=== PATIENT | female | born 1955 | race Caucasian/White ===

== ENCOUNTER 2019-01-04 11:41 | Inpatient (IN) | payer OTHER ==
[~2019-01-04] VITALS: Ht 149.9 cm; Wt 40.8 kg
[2019-01-04 11:47] VITALS: Ht 149.9 cm; Wt 40.8 kg
[2019-01-04 12:32] LABS: BASOPHIL % 3.3 % (0-2); PLATELET COUNT 84 x10^3mcL (130-400); RED CELL DISTRIBUTION WIDTH 14.4 % (11.5-14.5)
[2019-01-04 12:45] LABS: CARBON DIOXIDE 18.4 mmol/L (21-32); CHLORIDE SERUM 113 mmol/L (98-107); CREATININE SERUM 0.6 mg/dL (0.6-1.0); GFR1 > 60 mL/min; GLUCOSE SERUM 170 mg/dL (74-106); POTASSIUM SERUM 3.6 mmol/L (3.5-5.1); SODIUM SERUM 144 mmol/L (136-145)
[2019-01-04 12:48] LABS: ALKALINE PHOSPHATASE 139 U/L (46-116); ALT/SGPT 45 U/L (14-59); AST/SGOT 64 U/L (15-37); BILIRUBIN TOTAL 5.7 mg/dL (0.20-1.00)
[2019-01-04 12:49] LABS: ALBUMIN 2.8 g/dL (3.4-5.0)
[2019-01-04 15:05] LABS: T3 TOTAL 1.1 ng/mL
[2019-01-04 15:06] LABS: FREE T4 1.48 ng/dL (0.76-1.46); FREE THYROXINE INDEX 3.4 ug/dL (1.4-4.5); T4(THYROXINE) 8.8 ug/dL (4.7-13.3)
[2019-01-04 16:44] VITALS: BP 149/67
[2019-01-04 17:22] LABS: CHOLESTEROL/HDL RATIO 2.5
[2019-01-04 20:01] VITALS: BP 139/69
[2019-01-05 05:39] VITALS: BP 135/59
[2019-01-05 06:29] LABS: CALCIUM 8.1 mg/dL (8.5-10.1); CARBON DIOXIDE 20.2 mmol/L (21-32); CHLORIDE SERUM 114 mmol/L (98-107); CREATININE SERUM 0.5 mg/dL (0.6-1.0); GFR1 > 60 mL/min; GLUCOSE SERUM 121 mg/dL (74-106); MAGNESIUM 1.7 mg/dL (1.8-2.4); PHOSPHOROUS 4.7 mg/dL (2.5-4.9); POTASSIUM SERUM 3.7 mmol/L (3.5-5.1); SODIUM SERUM 146 mmol/L (136-145)
[2019-01-05 07:46] LABS: microscopic required? YES; urine erythrocyte 1+ (NEGATIVE)
[2019-01-05 08:28] LABS: BASOPHIL % 0.3 % (0-2); RED CELL DISTRIBUTION WIDTH 14.5 % (11.5-14.5)
[2019-01-05 08:30] LABS: PLATELET COUNT 88 x10^3mcL (130-400)
[2019-01-05 08:35] LABS: AMPHETAMINE QUAL UR NONE DETECTED (See below)
[2019-01-05 08:47] VITALS: BP 135/63
[2019-01-05] MEDS ORDERED: ZESTRIL20 MG PO (10:12)
[2019-01-05] MEDS ORDERED: FERROUS SULFAT325 M2 PO (10:13)
[2019-01-05] MEDS ORDERED: SEROQUEL XR50 MG PO (10:14)
[2019-01-05] MEDS ORDERED: AFRNS NS (10:19)
[2019-01-05] MEDS ORDERED: ALLERGY10 M2 PO (10:21)
[2019-01-05] MEDS ORDERED: EPZICOM1 TAB (10:21)
[2019-01-05 11:02] LABS: IRON 141 ug/dL (50-170)
[2019-01-05 11:50] LABS: RED BLOOD CELLS 3.21 M/mm3 (4.10-5.10)
[2019-01-05 12:30] VITALS: BP 133/63
[2019-01-05 13:35] LABS: TOTAL IRON BINDING CAPACITY 153 ug/dL (250-450)
[2019-01-05 17:11] VITALS: BP 132/60
[2019-01-05 21:17] VITALS: BP 146/62
[2019-01-06 06:09] VITALS: BP 130/60
[2019-01-06 06:15] LABS: BASOPHIL % 0.4 % (0-2)
[2019-01-06 06:34] LABS: CALCIUM 7.8 mg/dL (8.5-10.1); CARBON DIOXIDE 22.3 mmol/L (21-32); CHLORIDE SERUM 106 mmol/L (98-107); CREATININE SERUM 0.3 mg/dL (0.6-1.0); GFR1 > 60 mL/min; GLUCOSE SERUM 134 mg/dL (74-106); POTASSIUM SERUM 3.6 mmol/L (3.5-5.1); SODIUM SERUM 141 mmol/L (136-145)
[2019-01-06 06:59] LABS: PLATELET COUNT 101 x10^3mcL (130-400)
[2019-01-06 09:21] VITALS: BP 128/61
[2019-01-06 10:50] LABS: ALBUMIN 2.9 g/dL (3.4-5.0); BILIRUBIN DIRECT 1.13 mg/dL (0.0-0.2); BILIRUBIN TOTAL 6.6 mg/dL (0.20-1.00)
[2019-01-06 12:52] VITALS: BP 133/63
[2019-01-06 17:18] VITALS: BP 144/67
[2019-01-06 21:16] VITALS: BP 149/64
[2019-01-07 05:43] VITALS: BP 160/64
[2019-01-07 06:48] LABS: BASOPHIL % 0.4 % (0-2); RED CELL DISTRIBUTION WIDTH 13.8 % (11.5-14.5)
[2019-01-07 06:49] LABS: PLATELET COUNT 96 x10^3mcL (130-400)
[2019-01-07 07:06] LABS: CALCIUM 8.3 mg/dL (8.5-10.1); CARBON DIOXIDE 21.9 mmol/L (21-32); CHLORIDE SERUM 110 mmol/L (98-107); CREATININE SERUM 0.5 mg/dL (0.6-1.0); GFR1 > 60 mL/min; GLUCOSE SERUM 121 mg/dL (74-106); POTASSIUM SERUM 4.2 mmol/L (3.5-5.1); SODIUM SERUM 141 mmol/L (136-145)
[2019-01-07 09:33] VITALS: BP 145/66
[2019-01-07 12:37] VITALS: BP 145/62
[2019-01-07 13:29] VITALS: BP 145/62
[2019-01-07 18:00] VITALS: BP 130/63
[2019-01-07 20:27] VITALS: BP 141/68
[2019-01-08 04:59] VITALS: BP 138/61
[2019-01-08 06:32] LABS: CALCIUM 8.2 mg/dL (8.5-10.1); CARBON DIOXIDE 22.5 mmol/L (21-32); CHLORIDE SERUM 108 mmol/L (98-107); CREATININE SERUM 0.5 mg/dL (0.6-1.0); GFR1 > 60 mL/min; GLUCOSE SERUM 117 mg/dL (74-106); POTASSIUM SERUM 4.3 mmol/L (3.5-5.1); SODIUM SERUM 140 mmol/L (136-145)
[2019-01-08 06:44] LABS: RED CELL DISTRIBUTION WIDTH 13.9 % (11.5-14.5)
[2019-01-08 07:01] LABS: BASOPHIL % 0 % (0-2); PLATELET COUNT 111 x10^3mcL (130-400)
[2019-01-08 10:08] VITALS: BP 142/55
[2019-01-08 13:12] VITALS: BP 159/67
[2019-01-08 17:03] VITALS: BP 135/64
[2019-01-08 20:10] VITALS: BP 131/54
[2019-01-09 05:37] VITALS: BP 144/60
[2019-01-09 06:46] LABS: CALCIUM 8.7 mg/dL (8.5-10.1); CARBON DIOXIDE 21.4 mmol/L (21-32); CHLORIDE SERUM 105 mmol/L (98-107); CREATININE SERUM 0.4 mg/dL (0.6-1.0); GFR1 > 60 mL/min; GLUCOSE SERUM 137 mg/dL (74-106); POTASSIUM SERUM 4.2 mmol/L (3.5-5.1); SODIUM SERUM 137 mmol/L (136-145)
[2019-01-09 08:46] LABS: BASOPHIL % 0.5 % (0-2); RED CELL DISTRIBUTION WIDTH 13.7 % (11.5-14.5)
[2019-01-09 08:50] LABS: PLATELET COUNT 102 x10^3mcL (130-400)
[2019-01-09 09:08] VITALS: BP 130/54
[2019-01-09 20:45] VITALS: BP 131/58
[2019-01-10 05:14] VITALS: BP 131/59
[2019-01-10 06:48] LABS: CALCIUM 8.6 mg/dL (8.5-10.1); CARBON DIOXIDE 21.5 mmol/L (21-32); CHLORIDE SERUM 107 mmol/L (98-107); CREATININE SERUM 0.6 mg/dL (0.6-1.0); GFR1 > 60 mL/min; GLUCOSE SERUM 134 mg/dL (74-106); POTASSIUM SERUM 3.7 mmol/L (3.5-5.1); SODIUM SERUM 140 mmol/L (136-145)
[2019-01-10 07:49] VITALS: BP 131/59
[2019-01-10 08:07] LABS: BASOPHIL % 0.3 % (0-2); RED CELL DISTRIBUTION WIDTH 13.5 % (11.5-14.5)
[2019-01-10 08:08] LABS: PLATELET COUNT 108 x10^3mcL (130-400)
[2019-01-10 09:41] VITALS: BP 117/50
[2019-01-10 18:29] VITALS: BP 108/52
[2019-01-10 20:39] VITALS: BP 102/50
[2019-01-10 20:41] VITALS: BP 110/49
[2019-01-11 06:04] VITALS: BP 100/49
[2019-01-11 06:58] LABS: CALCIUM 8.4 mg/dL (8.5-10.1); CARBON DIOXIDE 22.5 mmol/L (21-32); CHLORIDE SERUM 108 mmol/L (98-107); CREATININE SERUM 0.5 mg/dL (0.6-1.0); GFR1 > 60 mL/min; GLUCOSE SERUM 124 mg/dL (74-106); POTASSIUM SERUM 3.8 mmol/L (3.5-5.1); SODIUM SERUM 140 mmol/L (136-145)
[2019-01-11 08:46] LABS: BASOPHIL % 0.3 % (0-2); RED CELL DISTRIBUTION WIDTH 13.1 % (11.5-14.5)
[2019-01-11 08:47] LABS: PLATELET COUNT 107 x10^3mcL (130-400)
[2019-01-11 09:52] VITALS: BP 101/40
[2019-01-11 17:00] VITALS: BP 99/48
[2019-01-11 20:13] VITALS: BP 97/42
[2019-01-11 21:48] VITALS: BP 91/32; BP 92/45
[2019-01-12 05:08] VITALS: BP 107/42
[2019-01-12 06:26] LABS: BASOPHIL % 0.3 % (0-2); RED CELL DISTRIBUTION WIDTH 13.4 % (11.5-14.5)
[2019-01-12 06:54] LABS: CALCIUM 8.3 mg/dL (8.5-10.1); CARBON DIOXIDE 23.9 mmol/L (21-32); CHLORIDE SERUM 107 mmol/L (98-107); CREATININE SERUM 0.5 mg/dL (0.6-1.0); GFR1 > 60 mL/min; GLUCOSE SERUM 126 mg/dL (74-106); POTASSIUM SERUM 3.8 mmol/L (3.5-5.1); SODIUM SERUM 138 mmol/L (136-145)
[2019-01-12 07:30] VITALS: BP 107/42
[2019-01-12 09:05] LABS: PLATELET COUNT 99 x10^3mcL (130-400)
[2019-01-12 12:12] LABS: BILIRUBIN DIRECT 1.16 mg/dL (0.0-0.2); BILIRUBIN TOTAL 5.7 mg/dL (0.20-1.00)
[2019-01-12 12:17] LABS: ALBUMIN 2.4 g/dL (3.4-5.0)
[2019-01-12 16:29] VITALS: BP 105/37
[2019-01-12 16:33] VITALS: BP 103/46
[2019-01-12 20:29] VITALS: BP 110/47
[2019-01-13 05:52] VITALS: BP 100/48
[2019-01-13 06:37] LABS: BASOPHIL % 0.4 % (0-2); RED CELL DISTRIBUTION WIDTH 13.2 % (11.5-14.5)
[2019-01-13 06:46] LABS: PLATELET COUNT 102 x10^3mcL (130-400)
[2019-01-13 07:30] LABS: CALCIUM 8.4 mg/dL (8.5-10.1); CHLORIDE SERUM 107 mmol/L (98-107); CREATININE SERUM 0.6 mg/dL (0.6-1.0); GFR1 > 60 mL/min; GLUCOSE SERUM 105 mg/dL (74-106); SODIUM SERUM 139 mmol/L (136-145)
[2019-01-13 09:29] VITALS: BP 103/53
[2019-01-13] MEDS ORDERED: PROPRANOLOL HCL20 MG PO (10:24)
[2019-01-13 16:29] VITALS: BP 103/53
[2019-01-13 17:16] VITALS: BP 105/51
[2019-01-13 21:25] VITALS: BP 113/47
== END 2019-01-13 23:29 | DRG 137 ==
LOC: ED 11:41 → MU 14:13 → DU 14:13 → MU 01-07 14:57
PROVIDERS: Emergency Medicine; General Practice; Internal Medicine Gastroenterology; ADMIT Internal Medicine
PROC: 0DB78ZX Excision of Stomach, Pylorus, Via Natural or Artificial Opening Endoscopic, Diagnostic (ICD-10-PCS; principal; 2019-01-07 08:00)
PROC: 0DJD8ZZ Inspection of Lower Intestinal Tract, Via Natural or Artificial Opening Endoscopic (ICD-10-PCS; 2019-01-07 08:00)
DX: J69.0 Pneumonitis due to inhalation of food and vomit (principal); J96.01 Acute respiratory failure with hypoxia; J44.9 Chronic obstructive pulmonary disease, unspecified; F71 Moderate intellectual disabilities; K74.69 Other cirrhosis of liver; D69.6 Thrombocytopenia, unspecified; I50.9 Heart failure, unspecified; I11.0 Hypertensive heart disease with heart failure; Z90.49 Acquired absence of other specified parts of digestive tract; Z79.899 Other long term (current) drug therapy
CPT/HCPCS: 36600; 43235; 45378; 82962; 83880; 84439; 85378; 87046; 87046-59; 90732; 97110-GP; 97116-GP; 97530-GP; G0378; J0456; J0696; J1200; J1610; J1940; J2250; J2310; J2543; J3010; J3430; J3490; J7030; J7040; J7050; J7060; J7620; Q0092